=== PATIENT | female | born 2000 | race Caucasian/White ===

== ENCOUNTER 2023-02-10 20:20 | Emergency (ER) | payer BC ==
[2023-02-10 20:24] VITALS: TEMP 98
[2023-02-10 23:32] VITALS: BP 137/94; PULSE 79; RESP 16
[2023-02-10] MEDS ORDERED: TOBRAMYCIN 0.3% OPHTH DROPS 5 ML BTL LEFT EYE STA (23:40)
--- NOTE | 2023-02-10 23:43 | ED ---
General Adult HPI - General Chief complaint: Wound/Laceration Stated complaint: left eye injury-cat scratch Time Seen by Provider: 02/10/23 21:53 Source: patient Mode of arrival: ambulatory Limitations: no limitations - History of Present Illness Initial comments: 42-year-old female presents to ED with a chief complaint of eye injury. Patient states that her cat was climbing and accidentally fell. In the process of falling tried to catch her cat which accidentally scratched her left thigh. Now notes a small laceration to the left upper eyelid. Denies any changes in vision. Patient is not a contact lens wearer. Denies fever. No other complaints. - Related Data Allergies Allergy/AdvReac Type Severity Reaction Status Date / Time egg AdvReac Nausea & Verified 02/10/23 20:24 Vomiting Review of Systems ROS Statement: Those systems with pertinent positive or pertinent negative responses have been documented in the HPI. ROS Other: All systems not noted in ROS Statement are negative. Past Medical History Past Medical History: No Reported History History of Any Multi-Drug Resistant Organisms: None Reported Past Surgical History: No Surgical Hx Reported Past Psychological History: ADD/ADHD Past Alcohol Use History: Occasional Past Drug Use History: Marijuana General Exam Limitations: no limitations General appearance: alert, in no apparent distress Eye exam: Present: normal appearance, PERRL, EOMI, other (Good pressures bilaterally. Left eye demonstrated corneal abrasion lateral to the pupil. No foreign objects visualized. Approximately half a centimeter superficial laceration to the left upper eyelid without any active bleeding.) Respiratory exam: Present: normal lung sounds bilaterally Cardiovascular Exam: Present: regular rate, normal rhythm GI/Abdominal exam: Present: soft Neurological exam: Present: alert, oriented X3 Psychiatric exam: Present: normal affect, normal mood Skin exam: Present: warm, dry Course Vital Signs 02/10/23 02/10/23 20:21 23:24 Temperature 98.0 F Pulse Rate 133 H 79 Respiratory 18 16 Rate Blood Pressure 159/78 137/94 O2 Sat by Pulse 96 97 Oximetry Medical Decision Making - Medical Decision Making Was pt. sent in by a medical professional or institution (, PA, [employer], urgent care, hospital, or longterm...) When possible be specific @ -No Did you speak to anyone other than the patient for history (EMS, parent, family, police, friend...)? What history was obtained from this source @ -No Did you review nursing and triage notes (agree or disagree)? Why? @ -I reviewed and agree with nursing and triage notes Were old charts reviewed (outside hosp., previous admission, EMS record, old EKG, old radiological studies, urgent care reports/EKG's, longterm records)? Report findings @ -No old charts were reviewed Differential Diagnosis (chest pain, altered mental status, abdominal pain women, abdominal pain men, vaginal bleeding, weakness, fever, dyspnea, syncope, headache, dizziness, GI bleed, back pain, seizure, CVA, palpatations, mental health, musculoskeletal)? @ -Retinal detachment, corneal abrasion, conjunctival laceration. This is not meant to be an all-inclusive list. EKG interpreted by me (3pts min.). @ -None X-rays interpreted by me (1pt min.). @ -None done CT interpreted by me (1pt min.). @ -None done U/S interpreted by me (1pt. min.). @ -None done What testing was considered but not performed or refused? (CT, X-rays, U/S, labs)? Why? @ -None What meds were considered but not given or refused? Why? @ -None Did you discuss the management of the patient with other professionals (professionals i.e. , PA, [employer], lab, RT, psych nurse, licensed social worker, cloth presser, teacher, [place] police officer, onsite case manager)? Give summary @ -No Was smoking cessation discussed for >3mins.? @ -No Was critical care preformed (if so, how long)? @ -No Were there social determinants of health that impacted care today? How? (Homelessness, low income, unemployed, alcoholism, drug addiction, transportatio n, low edu. Level, literacy, decrease access to med. care, residential, rehab)? @ -No Was there de-escalation of care discussed even if they declined (Discuss DNR or withdrawal of care, Hospice)? DNR status @ -No What co-morbidities impacted this encounter? (DM, HTN, Smoking, COPD, CAD, Cancer, CVA, ARF, Chemo, Hep., AIDS, mental health diagnosis, sleep apnea, morbid obesity)? @ -None Was patient admitted / discharged? Hospital course, mention meds given and route, prescriptions, significant lab abnormalities, going to OR and other pertinent info. @ -Discharge. Visual acuity showed no changes in vision and patient actually has better vision in the eye which was injured. Good ocular pressures. Exam showed corneal abrasion. Patient is having no loss of vision. Provided tobramycin eyedrops. Provided follow-up with ophthalmology as needed. Discussed return precautions with patient who verbalizes agreement. Undiagnosed new problem with uncertain prognosis? @ -No Drug Therapy requiring intensive monitoring for toxicity (Heparin, Nitro, Insulin, Cardizem)? @ -No Were any procedures done? @ -No Diagnosis/symptom? @ -Corneal abrasion Acute, or Chronic, or Acute on Chronic? @ -Acute Uncomplicated (without systemic symptoms) or Complicated (systemic symptoms)? @ -Uncomplicated Side effects of treatment? @ -No Exacerbation, Progression, or Severe Exacerbation? @ -No Poses a threat to life or bodily function? How? (Chest pain, USA, MD, pneumonia, PE, COPD, DKA, ARF, appy, cholecystitis, CVA, Diverticulitis, Homicidal, Suicidal, threat to staff... and all critical care pts) @ -No Disposition Clinical Impression: Corneal abrasion Disposition: HOME SELF-CARE Condition: Good Instructions (If sedation given, give patient instructions): Corneal Abrasion (ED) Additional Instructions: Please return to the Emergency Department if symptoms worsen or any other concerns. Is patient prescribed a controlled substance at d/c from ED?: No Referrals: None,Stated [Primary Care Provider] - 1-2 days Steve Soto MD [STAFF PHYSICIAN] - 1-2 days Time of Disposition: 23:43
== END 2023-02-11 00:22 | disposition home or self-care (01) ==
LOC: EC 20:20
DX: S01.112A Laceration without foreign body of left eyelid and periocular area, initial encounter (principal); F12.90 Cannabis use, unspecified, uncomplicated; Z91.012 Allergy to eggs; W55.03XA Scratched by cat, initial encounter
CPT/HCPCS: 99283

== ENCOUNTER → 2023-03-09 | Outpatient (CLI) | payer BC ==
--- NOTE | 2023-03-09 11:57 | CT ---
EXAMINATION TYPE: CT abdomen wo/w con DATE OF EXAM: 03/09/2023 COMPARISON: NONE HISTORY: 22-year-old female R79.89 ELEVATED DHEAS TECHNIQUE: Contiguous axial scanning of the abdomen before and after administration of 100 ml Isovue 300 IV contrast. Delayed images through the kidneys and coronal/sagittal reconstructions performed. CT DLP: 2592 mGycm Automated exposure control for dose reduction was used. FINDINGS: Heart is normal size without pericardial effusion. Lung bases clear without pleural effusio n. Liver mildly enlarged at 18.8 cm with diffuse low attenuation. No focal lesion is seen. Portal venous system is patent. No biliary ductal dilatation. Gallbladder, kidneys, spleen, and pancreas within normal limits. The bilateral adrenal glands are visualized and normal in appearance. No dilated small bowel, free fluid, or free air. No mesenteric or retroperitoneal lymphadenopathy. Normal appendix. Minimal scattered stool. No pericolonic inflammatory change. Pelvis not imaged. Ovaries are only partially visualized. Bones: No osseous destructive process. IMPRESSION: 1. MILD HEPATOMEGALY AT 18.8 CM WITH AT LEAST MODERATE HEPATIC STEATOSIS. CORRELATE WITH LFT's, LIPID PROFILE, AND PATIENT RISK FACTORS. 2. NORMAL CT APPEARANCE OF THE BILATERAL ADRENAL GLANDS. 3. NO OTHER SPECIFIC ABNORMALITY IS SEEN.
== END | disposition home or self-care (01) ==
LOC: RADCTMAIN 07:34
PROVIDERS: ATTEND Obstetrics & Gynecology
DX: K76.0 Fatty (change of) liver, not elsewhere classified (principal); N95.1 Menopausal and female climacteric states; R79.89 Other specified abnormal findings of blood chemistry
CPT/HCPCS: 74170; Q9967